=== PATIENT | female | born 1935 | race Caucasian/White ===

== ENCOUNTER 2016-04-14 15:50 | Outpatient (CLI) | payer MEDICARE, OTHER | END 2016-04-14 15:51 | disposition home or self-care (01) | DX: I48.91 Unspecified atrial fibrillation (principal) ==

== ENCOUNTER 2016-05-12 15:04 | Outpatient (CLI) | payer MEDICARE, OTHER | END 2016-05-12 15:05 | disposition home or self-care (01) | LOC: LAB.F 15:04 | PROVIDERS: ATTEND Physician Assistant | DX: I48.91 Unspecified atrial fibrillation (principal) | CPT/HCPCS: 85610 ==

== ENCOUNTER 2016-05-26 14:50 | Outpatient (CLI) | payer MEDICARE, OTHER | END 2016-05-26 14:51 | disposition home or self-care (01) | DX: I48.91 Unspecified atrial fibrillation (principal) ==

== ENCOUNTER 2016-06-03 14:53 | Outpatient (CLI) | payer MEDICARE, OTHER | END 2016-06-03 14:54 | disposition home or self-care (01) | DX: I48.91 Unspecified atrial fibrillation (principal) ==

== ENCOUNTER 2016-06-10 15:25 | Outpatient (CLI) | payer MEDICARE, OTHER | END 2016-06-10 15:26 | disposition home or self-care (01) | DX: I48.0 Paroxysmal atrial fibrillation (principal) ==

== ENCOUNTER 2016-06-24 15:07 | Outpatient (CLI) | payer MEDICARE, OTHER | END 2016-06-24 15:08 | disposition home or self-care (01) | DX: I48.91 Unspecified atrial fibrillation (principal) ==

== ENCOUNTER 2016-07-26 13:34 | Outpatient (CLI) | payer MEDICARE, OTHER | END 2016-07-26 23:59 | disposition home or self-care (01) | DX: I48.91 Unspecified atrial fibrillation (principal) ==

== ENCOUNTER 2016-08-01 14:39 | Outpatient (CLI) | payer MEDICARE, OTHER | END 2016-08-01 14:40 | disposition home or self-care (01) | DX: I48.91 Unspecified atrial fibrillation (principal) ==

== ENCOUNTER 2016-08-08 13:27 | Outpatient (CLI) | payer MEDICARE, OTHER | END 2016-08-08 13:28 | disposition home or self-care (01) | DX: I48.91 Unspecified atrial fibrillation (principal) ==

== ENCOUNTER 2016-08-30 13:38 | Outpatient (CLI) | payer MEDICARE, OTHER | END 2016-08-30 13:39 | disposition home or self-care (01) | LOC: LAB.F 13:38 | PROVIDERS: ATTEND Physician Assistant | DX: I48.91 Unspecified atrial fibrillation (principal) | CPT/HCPCS: 85610 ==

== ENCOUNTER 2016-09-06 13:30 | Outpatient (CLI) | payer MEDICARE, OTHER | END 2016-09-06 13:31 | disposition home or self-care (01) | LOC: LAB.F 13:30 | PROVIDERS: ATTEND Physician Assistant | DX: I48.91 Unspecified atrial fibrillation (principal) | CPT/HCPCS: 85610 ==

== ENCOUNTER 2016-09-19 13:30 | Outpatient (CLI) | payer MEDICARE, OTHER | END 2016-09-19 13:31 | disposition home or self-care (01) | LOC: LAB.F 13:30 | PROVIDERS: ATTEND Physician Assistant | DX: I48.91 Unspecified atrial fibrillation (principal) | CPT/HCPCS: 85610 ==

== ENCOUNTER 2016-10-18 11:27 | Outpatient (CLI) | payer MEDICARE, OTHER ==
[2016-10-18 19:40] LABS: CALCIUM 9.2 mg/dL (8.5-10.3); CREATININE 1.5 mg/dL (0.4-1.0); POTASSIUM 3.8 mmol/L (3.5-5.0)
== END 2016-10-18 23:59 | disposition home or self-care (01) ==
LOC: LAB.F 11:27
PROVIDERS: ATTEND Internal Medicine Cardiovascular Disease
DX: I48.91 Unspecified atrial fibrillation (principal); I48.0 Paroxysmal atrial fibrillation
CPT/HCPCS: 36415; 80048; 85610

== ENCOUNTER 2016-10-18 11:27 | Outpatient (CLI) | payer MEDICARE, OTHER | END 2016-10-18 11:28 | disposition home or self-care (01) | LOC: LAB 11:27 | PROVIDERS: ATTEND Physician Assistant | DX: Z53.9 Procedure and treatment not carried out, unspecified reason (principal) ==

== ENCOUNTER 2016-10-25 13:39 | Outpatient (CLI) | payer MEDICARE, OTHER | END 2016-10-25 13:40 | disposition home or self-care (01) | LOC: LAB.F 13:39 | PROVIDERS: ATTEND Physician Assistant | DX: I48.91 Unspecified atrial fibrillation (principal) | CPT/HCPCS: 85610 ==

== ENCOUNTER 2016-11-01 14:40 | Outpatient (CLI) | payer MEDICARE, OTHER | END 2016-11-01 14:41 | disposition home or self-care (01) | LOC: LAB.F 14:40 | PROVIDERS: ATTEND Physician Assistant | DX: I48.91 Unspecified atrial fibrillation (principal) | CPT/HCPCS: 85610 ==

== ENCOUNTER 2016-11-08 15:29 | Outpatient (CLI) | payer MEDICARE, OTHER | END 2016-11-08 15:30 | disposition home or self-care (01) | LOC: LAB.F 15:29 | PROVIDERS: ATTEND Physician Assistant | DX: I48.91 Unspecified atrial fibrillation (principal) | CPT/HCPCS: 85610 ==

== ENCOUNTER 2016-11-10 10:12 | Outpatient (CLI) | payer MEDICARE, OTHER ==
[2016-11-10 18:15] LABS: CALCIUM 8.7 mg/dL (8.5-10.3); POTASSIUM 3.7 mmol/L (3.5-5.0)
== END 2016-11-10 10:13 | disposition home or self-care (01) ==
LOC: LAB.F 10:12
PROVIDERS: ATTEND Internal Medicine
DX: I10 Essential (primary) hypertension (principal); R06.2 Wheezing; I48.2 Chronic atrial fibrillation; R68.89 Other general symptoms and signs
CPT/HCPCS: 36415; 80048; 83880

== ENCOUNTER 2016-11-10 16:01 | Outpatient (CLI) | payer MEDICARE, OTHER ==
--- NOTE | 2016-11-11 09:27 | XRAY Report ---
TWO-VIEW CHEST: 11/10/2016 CLINICAL INDICATION: Atrial fibrillation, wheezing. COMPARISON: 11/08/2012 FINDINGS: Frontal and lateral views of the chest demonstrate the cardiac silhouette is at the upper limits of normal. There is new right hilar prominence, suspicious for adenopathy. The lungs demonst rate interstitial opacities, which may reflect edema. Trace effusions are present. No pneumothorax. IMPRESSION: LIKELY MILD INTERSTITIAL EDEMA, WITH TRACE EFFUSIONS. RIGHT HILAR FULLNESS, NEW FROM MD EVIOUS, SUSPICIOUS FOR ADENOPATHY. CONSIDER CHEST CT FOR FURTHER EVALUATION. JOB #: [id number] EXT JOB #:[id number]
== END 2016-11-10 16:02 | disposition home or self-care (01) ==
LOC: DI 16:01
PROVIDERS: ATTEND Internal Medicine
DX: I48.2 Chronic atrial fibrillation (principal); R06.2 Wheezing
CPT/HCPCS: 36415; 71020; 80048; 83880

== ENCOUNTER 2016-11-22 13:57 | Outpatient (CLI) | payer MEDICARE, OTHER | END 2016-11-22 13:58 | disposition home or self-care (01) | LOC: LAB.F 13:57 | PROVIDERS: ATTEND Physician Assistant | DX: I48.91 Unspecified atrial fibrillation (principal) | CPT/HCPCS: 85610 ==

== ENCOUNTER 2016-12-20 14:32 | Outpatient (CLI) | payer MEDICARE, OTHER | END 2016-12-20 14:33 | disposition home or self-care (01) | LOC: LAB.F 14:32 | PROVIDERS: ATTEND Physician Assistant | DX: I48.91 Unspecified atrial fibrillation (principal) | CPT/HCPCS: 85610 ==

== ENCOUNTER 2016-12-27 13:27 | Outpatient (CLI) | payer MEDICARE, OTHER ==
[2016-12-27] MEDS ORDERED: IOPAMIDOL-300 100 ML VIAL ONE (14:00)
[2016-12-27] MEDS ORDERED: IOPAMIDOL-300 100 ML VIAL IVP ONE ×2 (14:03)
--- NOTE | 2016-12-27 18:32 | CT Report ---
CT CHEST WITH CONTRAST: 12/27/2016 CLINICAL INDICATION: Possible right hilar adenopathy on chest x-ray. TECHNIQUE: Axial CT images of the chest were obtained with 50 mL of Isovue-300 intravenously, due to patient's renal insufficiency. COMPARISON: Chest x-ray 11/10/2016. FINDINGS: There is a substernal thyroid goiter, predominately right-sided. No hilar or mediastinal lymphadenopathy is present. Right hilar fullness on plain film correlates with overlap of vascular s tructures. The lungs are clear. No effusion or pneumothorax is present. Osseous structures demonst rate degenerative changes. Limited evaluation of upper abdominal structures demonstrates normal adre nal glands. Hepatic cysts are incidentally noted. IMPRESSION: NO EVIDENCE OF HILAR ADENOPATHY. RIGHT HILAR FULLNESS ON CHEST X-RAY CORRELATES WITH GILMAN PERIMPOSITION OF VASCULAR STRUCTURES. THYROID GOITER, WITH RIGHT-SIDED SUBSTERNAL EXTENSION. INCIDE NTAL HEPATIC CYSTS. In accordance with CT protocol optimization, one or more of the following dose reduction techniques w ere utilized for this exam: automated exposure control, adjustment of mA and/or KV based on patient size, or use of iterative reconstructive technique. JOB #: [id number] EXT JOB #:[id number]
== END 2016-12-27 13:28 | disposition home or self-care (01) ==
LOC: DI 13:27
PROVIDERS: ATTEND Internal Medicine
DX: R06.00 Dyspnea, unspecified (principal); E04.9 Nontoxic goiter, unspecified
CPT/HCPCS: 71260; Q9967

== ENCOUNTER 2017-01-06 14:33 | Outpatient (CLI) | payer MEDICARE, OTHER ==
[2017-01-06 18:35] LABS: POTASSIUM 3.4 mmol/L (3.5-5.0)
[2017-01-06 18:53] LABS: THYROID STIMULATING HORMONE 0.38 uIU/mL (0.34-5.60)
[2017-01-06 19:00] LABS: TOTAL T3 0.69 ng/mL (0.87-1.78)
== END 2017-01-06 14:34 | disposition home or self-care (01) ==
LOC: LAB.F 14:33
PROVIDERS: ATTEND Internal Medicine
DX: N17.9 Acute kidney failure, unspecified (principal); E04.9 Nontoxic goiter, unspecified; I48.91 Unspecified atrial fibrillation
CPT/HCPCS: 36415; 80048; 84436; 84443; 84480; 85610

== ENCOUNTER 2017-02-09 15:23 | Outpatient (CLI) | payer MEDICARE, OTHER | END 2017-02-09 15:24 | disposition home or self-care (01) | LOC: LAB.F 15:23 | PROVIDERS: ATTEND Physician Assistant | DX: I48.91 Unspecified atrial fibrillation (principal) | CPT/HCPCS: 85610 ==

== ENCOUNTER 2017-03-13 15:10 | Outpatient (CLI) | payer MEDICARE, OTHER | END 2017-03-13 15:11 | disposition home or self-care (01) | LOC: LAB.F 15:10 | PROVIDERS: ATTEND Internal Medicine | DX: I48.91 Unspecified atrial fibrillation (principal); E04.9 Nontoxic goiter, unspecified | CPT/HCPCS: 36415; 82565; 85610 ==

== ENCOUNTER 2017-03-20 14:37 | Outpatient (CLI) | payer MEDICARE, OTHER | END 2017-03-20 14:38 | disposition home or self-care (01) | LOC: LAB.F 14:37 | PROVIDERS: ATTEND Physician Assistant | DX: I48.91 Unspecified atrial fibrillation (principal) | CPT/HCPCS: 85610 ==

== ENCOUNTER 2017-04-11 13:55 | Outpatient (CLI) | payer MEDICARE, OTHER | END 2017-04-11 13:56 | disposition home or self-care (01) | LOC: LAB.F 13:55 | PROVIDERS: ATTEND Physician Assistant | DX: I48.91 Unspecified atrial fibrillation (principal) | CPT/HCPCS: 85610 ==

== ENCOUNTER 2017-04-25 13:49 | Outpatient (CLI) | payer MEDICARE, OTHER | END 2017-04-25 13:50 | disposition home or self-care (01) | LOC: LAB.F 13:49 | PROVIDERS: ATTEND Physician Assistant | DX: I48.91 Unspecified atrial fibrillation (principal) | CPT/HCPCS: 85610 ==

== ENCOUNTER 2017-05-02 14:25 | Outpatient (CLI) | payer MEDICARE, OTHER | END 2017-05-02 14:26 | disposition home or self-care (01) | LOC: LAB.F 14:25 | PROVIDERS: ATTEND Physician Assistant | DX: I48.91 Unspecified atrial fibrillation (principal) | CPT/HCPCS: 85610 ==

== ENCOUNTER 2017-05-11 13:39 | Outpatient (CLI) | payer MEDICARE, OTHER | END 2017-05-11 13:40 | disposition home or self-care (01) | LOC: LAB.F 13:39 | PROVIDERS: ATTEND Physician Assistant | DX: I48.91 Unspecified atrial fibrillation (principal) | CPT/HCPCS: 85610 ==

== ENCOUNTER 2017-05-29 14:40 | Outpatient (CLI) | payer MEDICARE, OTHER | END 2017-05-29 14:41 | disposition home or self-care (01) | LOC: LAB.F 14:40 | PROVIDERS: ATTEND Physician Assistant | DX: I48.91 Unspecified atrial fibrillation (principal) | CPT/HCPCS: 85610 ==

== ENCOUNTER 2017-07-04 14:09 | Outpatient (CLI) | payer MEDICARE, OTHER | END 2017-07-04 14:10 | disposition home or self-care (01) | LOC: LAB.F 14:09 | PROVIDERS: ATTEND Physician Assistant | DX: I48.91 Unspecified atrial fibrillation (principal) | CPT/HCPCS: 85610 ==

== ENCOUNTER 2017-07-09 20:54 | Outpatient (CLI) | payer MEDICARE, OTHER | END 2017-07-09 20:55 | disposition EMS.NT | LOC: EMS 20:54 | PROVIDERS: ATTEND Surgery | DX: R07.81 Pleurodynia (principal) ==

== ENCOUNTER 2017-07-09 21:55 | Emergency (ER) | payer MEDICARE, OTHER ==
[2017-07-09] MEDS ORDERED: ACETAMINOPHEN 325 MG TABLET PO STA (22:09)
--- NOTE | 2017-07-09 22:46 | XRAY Preliminary Report ---
Exam: XR RIBS W/PA CHEST RT IMPRESSION: No displaced rib fracture or complication from rib fracture seen. [facility] SITE ID: [id number]
--- NOTE | 2017-07-09 22:48 | XRAY Report ---
EXAM: RIGHT RIB RADIOGRAPHY EXAM DATE: 07/09/2017 10:38 PM. CLINICAL HISTORY: Right posterior rib pain and ecchymosis. COMPARISON: CT 12/27/2016, x-ray 11/10/2016. TECHNIQUE: 1 view of the chest and 2 views of the ribs. FINDINGS: Bones: No displaced rib fracture seen. Lungs: No focal opacities. No gross pneumothorax or large effusion. Mediastinum: Heart and mediastinal contours are stable with mild cardiomegaly noted. Other: None. IMPRESSION: No displaced rib fracture or complication from rib fracture seen. [facility] Referring Provider Line: [phone] SITE ID: [id number]
[2017-07-09] MEDS ORDERED: LIDOCAINE PATCH 5% TOP STA (22:49)
[2017-07-09 23:03] VITALS: BP 140/78
--- NOTE | 2017-07-09 23:04 | ED Physician Documentation ---
PD HPI BACK INJURY - Stated complaint Stated Complaint: BACK SPASM - History obtained from History obtained from: Patient, Family - History of Present Illness Location: Right, Lower Type of injury: Fall Where injury occurred: Home Timing - onset: How many days ago (4) Timing - details: Intermittant, Waxing and waning Quality: Pain, Spasm Contributing factors: Anticoagulated Similar symptoms before: Has not had sx before Recently seen: Not recently seen - Additional information Additional information: patient is an 82 year old female with a history of dementia who is presenting to the emergency department for back pain and spasm. According to the family they noticed some bruising on her back about 4 days ago but patient only had minimal pain. Patient did not remember falling or if she hit ti on anything. Family and patient deny any nausea, vomiting, headaches or change in mental status. Tonight when she was watching TV the patient complained of back muscle spasms so the family brought the patient in for evaluation. Review of Systems Unable to obtain: Dementia PD PAST MEDICAL HISTORY - Past Medical History Past Medical History: Yes Cardiovascular: Hypertension, Atrial fibrillation Neuro: Alzhiemer's - Past Surgical History Past Surgical History: Yes General: Appendectomy - Present Medications Home Medications: Ambulatory Orders Medication Instructions Recorded Confirmed DULoxetine [Cymbalta] 30 mg PO DAILY 07/09/17 07/09/17 Donepezil [Aricept] 5 mg PO DAILY 07/09/17 07/09/17 Lidocaine Patch 5% [Lidoderm Patch] 1 each TOP DAILY #10 patch 07/09/17 Lisinopril 20 mg PO 07/09/17 Triamterene/Hydrochlorothiazid 07/09/17 [Triamterene-Hctz 37.5-25 mg Cp] Warfarin Sodium [Jantoven] 4 mg PO 07/09/17 diltiaZEM [Cardizem] 60 mg PO ONCE 07/09/17 07/09/17 - Allergies Allergies/Adverse Reactions: Allergies Allergy/AdvReac Type Severity Reaction Status Date / Time No Known Drug Allergies Allergy Verified 07/09/17 22:15 - Social History Does the pt smoke?: No Smoking Status: Never smoker Does the pt drink ETOH?: No Does the pt have substance abuse?: No - Immunizations Immunizations are current?: No - POLST Patient has POLST: No PD ED PE NORMAL - Vitals Vital signs reviewed: Yes - General General: Alert and oriented X 3 - HEENT HEENT: Atraumatic - Neck Neck: No bony TTP - Cardiac Cardiac: RRR, No murmur - Respiratory Respiratory: No respiratory distress - Abdomen Abdomen: Non distended - Neuro Neuro: Alert and oriented X 3, No motor deficit, Normal speech Eye Opening: Spontaneous Motor: Obeys Commands PD ED PE EXPANDED - Back Back: Soft tissue tenderness (tenderness and ecchymosis of right lateral medial back) - Extremities Extremities: Right arm (posterior ecchymosis) Results - Vitals Vitals: Vital Signs - 24 hr 07/09/17 07/09/17 21:58 23:03 Temperature 36.0 C L Heart Rate 83 96 Respiratory 18 18 Rate Blood Pressure 146/89 H 140/78 H O2 Saturation 98 97 Oxygen O2 Source Room air - Rads (name of study) rib series Radiology: Final report received (no acute fracture or dislocation) PD MEDICAL DECISION MAKING - ED course Complexity details: reviewed old records, reviewed results, re-evaluated patient , considered differential, d/w patient, d/w family ED course: Patient was seen and examined at bedside. Patient was sent for imaging. when patient returned the results were reviewed. there was no acute fracture or dislocation. patient was treated with tylenol and a lidoderm patch. patient required no further inpatient work up and was stable for discharge with outpatient followup. Departure - Departure Disposition: 01 Home, Self Care Clinical Impression: Back pain Condition: Good Instructions: ED Contusion Back Follow-Up: Linda Guerra PA [Primary Care Provider] - As Needed Prescriptions: Lidocaine Patch 5% [Lidoderm Patch] 1 each TOP DAILY #10 patch Comments: Your diagnostics today were within normal limits. There is no acute fracture or dislocation. You can alternate between 600mg of ibuprofen and 1000mg of tylenol as needed every three hours. You can also apply the lidoderm patch once a day. Ice and heat may also aid in symptom relief. You should follow up with your doctor if your symptoms persist. You may return to the emergency department at any time for new, worsening or uncontrollable symptoms. Discharge Date/Time: 07/09/17 23:09
== END 2017-07-09 23:09 | disposition home or self-care (01) ==
LOC: ED 21:55
DX: M54.9 Dorsalgia, unspecified (principal); S30.0XXA Contusion of lower back and pelvis, initial encounter; W18.30XA Fall on same level, unspecified, initial encounter; I48.91 Unspecified atrial fibrillation; G30.9 Alzheimer's disease, unspecified; F02.80 Dementia in other diseases classified elsewhere, unspecified severity, without behavioral disturbance, psychotic disturbance, mood disturbance, and anxiety; I10 Essential (primary) hypertension; Z79.01 Long term (current) use of anticoagulants
CPT/HCPCS: 71101; 99283; A9270

== ENCOUNTER 2017-08-07 13:37 | Outpatient (CLI) | payer MEDICARE, OTHER ==
[2017-08-07 18:33] LABS: THYROID STIMULATING HORMONE 0.23 uIU/mL (0.34-5.60)
[2017-08-07 18:37] LABS: T4 (THYROXINE) 9.09 ug/dL (6.09-12.23)
[2017-08-07 18:40] LABS: TOTAL T3 0.9 ng/mL (0.87-1.78)
== END 2017-08-07 13:38 | disposition home or self-care (01) ==
LOC: LAB.F 13:37
PROVIDERS: ATTEND Physician Assistant
DX: I48.91 Unspecified atrial fibrillation (principal); E04.9 Nontoxic goiter, unspecified
CPT/HCPCS: 84436; 84443; 84480; 85610

== ENCOUNTER 2017-09-12 14:11 | Outpatient (CLI) | payer MEDICARE, OTHER | END 2017-09-12 14:12 | disposition home or self-care (01) | LOC: LAB.F 14:11 | PROVIDERS: ATTEND Physician Assistant | DX: I48.91 Unspecified atrial fibrillation (principal) | CPT/HCPCS: 85610 ==

== ENCOUNTER 2017-10-16 13:45 | Outpatient (CLI) | payer MEDICARE, OTHER | END 2017-10-16 13:46 | disposition home or self-care (01) | LOC: LAB.F 13:45 | PROVIDERS: ATTEND Physician Assistant | DX: I48.91 Unspecified atrial fibrillation (principal) | CPT/HCPCS: 85610 ==

== ENCOUNTER 2017-11-16 10:30 | Outpatient (CLI) | payer MEDICARE, OTHER | END 2017-11-16 10:31 | disposition home or self-care (01) | LOC: LAB.F 10:30 | PROVIDERS: ATTEND Physician Assistant | DX: I48.91 Unspecified atrial fibrillation (principal) | CPT/HCPCS: 85610 ==

== ENCOUNTER 2017-12-27 13:13 | Outpatient (CLI) | payer MEDICARE, OTHER ==
[2017-12-27 17:43] LABS: ALBUMIN 3.7 g/dL (3.2-5.5); BILIRUBIN,TOTAL 0.9 mg/dL (0.2-1.0); CREATININE 0.7 mg/dL (0.4-1.0); TOTAL PROTEIN 7.4 g/dL (6.7-8.2)
[2017-12-27 17:53] LABS: T4 (THYROXINE) 8.95 ug/dL (6.09-12.23)
[2017-12-27 17:57] LABS: THYROID STIMULATING HORMONE 0.36 uIU/mL (0.34-5.60)
[2017-12-27 18:02] LABS: TOTAL T3 0.89 ng/mL (0.87-1.78)
== END 2017-12-27 13:14 | disposition home or self-care (01) ==
LOC: LAB.F 13:13
PROVIDERS: ATTEND Physician Assistant
DX: N18.9 Chronic kidney disease, unspecified (principal); E04.9 Nontoxic goiter, unspecified; I48.91 Unspecified atrial fibrillation
CPT/HCPCS: 36415; 80053; 84436; 84443; 84480; 85610

== ENCOUNTER 2018-01-22 13:52 | Outpatient (CLI) | payer MEDICARE, OTHER | END 2018-01-22 13:53 | disposition home or self-care (01) | LOC: LAB.F 13:52 | PROVIDERS: ATTEND Physician Assistant | DX: I48.91 Unspecified atrial fibrillation (principal) | CPT/HCPCS: 85610 ==

== ENCOUNTER 2018-02-26 14:19 | Outpatient (CLI) | payer MEDICARE, OTHER | END 2018-02-26 14:20 | disposition home or self-care (01) | LOC: LAB.F 14:19 | PROVIDERS: ATTEND Physician Assistant | DX: I48.91 Unspecified atrial fibrillation (principal) | CPT/HCPCS: 85610 ==

== ENCOUNTER 2018-03-12 14:10 | Outpatient (CLI) | payer MEDICARE, OTHER | END 2018-03-12 14:11 | disposition home or self-care (01) | LOC: LAB.F 14:10 | PROVIDERS: ATTEND Physician Assistant | DX: I48.91 Unspecified atrial fibrillation (principal) | CPT/HCPCS: 85610 ==

== ENCOUNTER 2018-04-18 13:41 | Outpatient (CLI) | payer MEDICARE, OTHER | END 2018-04-18 13:42 | disposition home or self-care (01) | LOC: LAB.F 13:41 | PROVIDERS: ATTEND Physician Assistant | DX: I48.91 Unspecified atrial fibrillation (principal) | CPT/HCPCS: 85610 ==

== ENCOUNTER 2018-05-23 14:14 | Outpatient (CLI) | payer MEDICARE, OTHER | END 2018-05-23 14:15 | disposition home or self-care (01) | LOC: LAB.F 14:14 | PROVIDERS: ATTEND Physician Assistant | DX: I48.91 Unspecified atrial fibrillation (principal) | CPT/HCPCS: 85610 ==

== ENCOUNTER 2018-05-30 08:00 | Outpatient (CLI) | payer MEDICARE, OTHER | END 2018-05-30 23:59 | disposition home or self-care (01) | LOC: LAB.F 08:00 | PROVIDERS: ATTEND Physician Assistant | DX: I48.91 Unspecified atrial fibrillation (principal) | CPT/HCPCS: 85610 ==

== ENCOUNTER 2018-06-11 14:21 | Outpatient (CLI) | payer MEDICARE, OTHER | END 2018-06-11 14:22 | disposition home or self-care (01) | LOC: LAB.F 14:21 | PROVIDERS: ATTEND Physician Assistant | DX: I48.91 Unspecified atrial fibrillation (principal) | CPT/HCPCS: 85610 ==

== ENCOUNTER 2018-07-20 13:14 | Outpatient (CLI) | payer MEDICARE, OTHER | END 2018-07-20 13:15 | disposition home or self-care (01) | LOC: LAB.F 13:14 | PROVIDERS: ATTEND Physician Assistant | DX: I48.91 Unspecified atrial fibrillation (principal) | CPT/HCPCS: 85610 ==

== ENCOUNTER 2018-08-21 13:03 | Outpatient (CLI) | payer MEDICARE, OTHER | END 2018-08-21 13:04 | disposition home or self-care (01) | LOC: LAB.F 13:03 | PROVIDERS: ATTEND Physician Assistant | DX: I48.91 Unspecified atrial fibrillation (principal) | CPT/HCPCS: 85610 ==

== ENCOUNTER 2018-09-26 13:18 | Outpatient (CLI) | payer MEDICARE, OTHER | END 2018-09-26 13:19 | disposition home or self-care (01) | LOC: LAB.F 13:18 | PROVIDERS: ATTEND Physician Assistant | DX: I48.91 Unspecified atrial fibrillation (principal) | CPT/HCPCS: 85610 ==

== ENCOUNTER 2018-10-26 14:48 | Outpatient (CLI) | payer MEDICARE, OTHER ==
--- NOTE | 2018-10-29 10:02 | XRAY Report ---
Reason: LOW BACK PAIN Procedure Date: 10/26/2018 Accession Number: [id number] / [id number] Procedure: XRS - Lumbar Spine 2 View CPT Code: FULL RESULT: EXAM: LUMBOSACRAL SPINE RADIOGRAPHY EXAM DATE: 10/26/2018 03:21 PM. CLINICAL HISTORY: Low back pain. COMPARISONS: LUMBAR SPINE W/O 11/29/2013 1:24 PM. TECHNIQUE: 3 views. FINDINGS: Alignment: Compared to the CT in 2013, there is possibly mild increase in anterolisthesis of L4 on L5, evaluation limited by osteopenia and differences in technique. Bones: Five olp-abh-ncydodn lumbar vertebral bodies are present. The bones are qualitatively osteopenic; this limits evaluation for underlying fractures or masses. No definite fracture is seen though the vertebral body outline of L5 is essentially occult. Disks: There is multilevel loss of disk space height. Facets: At L4 and L5 there are at least moderate degenerative changes, limited by osteopenia. Sacroiliac Joints: Unremarkable. Soft Tissues: Aortic calcifications. IMPRESSION: Marked osteopenia and degenerative changes which may have progressed compared to 2013. The L5 vertebral body is not well seen with frontal view supportive of possible fracture or significant degenerative changes at that level. Recommendation: If clinically warranted, imaging is supportive of the need for additional evaluation by cross-sectional imaging, MRI is likely more helpful than CT. [facility]
== END 2018-10-26 14:49 | disposition home or self-care (01) ==
LOC: DI.S 14:48
PROVIDERS: ATTEND Internal Medicine
DX: M51.36 Other intervertebral disc degeneration, lumbar region (principal); M47.816 Spondylosis without myelopathy or radiculopathy, lumbar region; M85.88 Other specified disorders of bone density and structure, other site; I48.91 Unspecified atrial fibrillation; M43.16 Spondylolisthesis, lumbar region
CPT/HCPCS: 72100; 85610

== ENCOUNTER 2018-11-12 14:57 | Outpatient (CLI) | payer MEDICARE, OTHER ==
--- NOTE | 2018-11-12 17:27 | CT Report ---
Reason: PLAIN XRAY LUMBAR SPINE ABNORMAL Procedure Date: 11/12/2018 Accession Number: [id number] / [id number] Procedure: CT - LUMBAR SPINE WO CPT Code: FULL RESULT: EXAM: CT LUMBAR SPINE WITHOUT CONTRAST EXAM DATE: 11/12/2018 03:29 PM. CLINICAL HISTORY: Plain x-ray lumbar spine abnormal. COMPARISONS: LUMBAR SPINE 2 VIEW 10/26/2018 3:18 PM LUMBAR SPINE W/O 11/29/2013 1:24 PM. TECHNIQUE: Thin-section axial images were acquired of the lumbar spine from T12 to S1 without contrast. Post-processing: Coronal and sagittal reformats. Other: None. In accordance with CT protocol optimization, one or more of the following dose reduction techniques were utilized for this exam: automated exposure control, adjustment of mA and/or KV based on patient size, or use of iterative reconstructive technique. FINDINGS: Alignment: No scoliosis or spondylolisthesis. Bones: Sacralization of L5. No fractures or bone lesions. Disk Levels/Facets: T12-L1: Negative for spinal canal stenosis or foraminal stenosis. L1-L2: Moderate disk degeneration. Diffuse disk bulge osteophyte complex. Mild spinal canal stenosis. Moderate bilateral foraminal stenosis. Negative for interval change. Retrolisthesis 3 mm L1 on L2. L2-L3: Mild facet joint arthrosis. Moderate spinal canal stenosis. Mild bilateral lateral recess stenosis. Ossification ligamentum flavum. Diffuse disk bulge osteophyte complex. Moderate bilateral foraminal stenosis. Moderate disk degeneration. L3-L4: Retrolisthesis 3 mm L3 on L4. Moderately severe spinal canal stenosis from facet hypertrophy, ligamentum flavum thickening and diffuse disk bulge osteophyte complex. Mild bilateral foraminal stenosis. L4-L5: Severe disk degeneration. Anterolisthesis 6 mm L4 on L5 increased as compared to 11/29/2013. Moderately severe spinal canal stenosis severe facet hypertrophic arthropathy. Moderate bilateral lateral recess stenosis. Severe right foraminal stenosis from foraminal disk herniation which has developed since the CT lumbar spine 11/29/2013. Moderate left foraminal stenosis from disk degeneration and foraminal disk protrusion osteophyte complex. Negative for interval change. Severe disk degeneration. Laminectomy defect. L5-S1: Hypoplastic disk interspace. Interbody fusion. Facet joint fusion. Negative for spinal canal stenosis or foraminal stenosis. Musculature: Low lumbar and sacrum posterior paraspinal muscle atrophy with fatty replacement. Moderate bilateral atrophy psoas muscles. Other: The visualized retroperitoneum is unremarkable. IMPRESSION: 1. Severe disk degeneration and severe facet hypertrophic arthropathy L4-L5 with 6 mm anterolisthesis L4 on L5 increased from 4 mm anterolisthesis L4 on L5 as compared to the CT lumbar spine 11/29/2013. 2. Moderately severe spinal canal stenosis and moderate bilateral recess stenosis L4-L5 with interval spinal canal narrowing as compared to the CT lumbar spine 11/29/2013. 3. Severe right L4-L5 foraminal stenosis from lateral disk herniation with exiting right L4 nerve root impingement which has developed since the CT lumbar spine 11/29/2013. 4. Moderate left L4-L5 foraminal stenosis without interval changes compared to the CT lumbar spine 11/29/2013. 5. Moderately severe spinal canal stenosis L3-L4 without interval change. 6. Moderate spinal canal stenosis, mild bilateral lateral recess stenosis and moderate bilateral foraminal stenosis L2-L3 without interval change. [facility]
== END 2018-11-12 14:58 | disposition home or self-care (01) ==
LOC: DI 14:57
PROVIDERS: ATTEND Internal Medicine
DX: M51.36 Other intervertebral disc degeneration, lumbar region (principal); M48.061 Spinal stenosis, lumbar region without neurogenic claudication; M47.816 Spondylosis without myelopathy or radiculopathy, lumbar region; M43.16 Spondylolisthesis, lumbar region; M51.26 Other intervertebral disc displacement, lumbar region; M43.27 Fusion of spine, lumbosacral region
CPT/HCPCS: 72131

== ENCOUNTER 2018-11-28 13:59 | Outpatient (CLI) | payer MEDICARE, OTHER | END 2018-11-28 14:00 | disposition home or self-care (01) | LOC: LAB.S 13:59 | PROVIDERS: ATTEND Physician Assistant | DX: I48.91 Unspecified atrial fibrillation (principal) | CPT/HCPCS: 85610 ==

== ENCOUNTER 2018-12-10 14:54 | Outpatient (CLI) | payer MEDICARE, OTHER | END 2018-12-10 14:55 | disposition home or self-care (01) | LOC: LAB.S 14:54 | PROVIDERS: ATTEND Physician Assistant | DX: I48.91 Unspecified atrial fibrillation (principal) | CPT/HCPCS: 85610 ==

== ENCOUNTER 2018-12-25 13:21 | Outpatient (CLI) | payer MEDICARE, OTHER | END 2018-12-25 13:22 | disposition home or self-care (01) | LOC: LAB.S 13:21 | PROVIDERS: ATTEND Physician Assistant | DX: I48.91 Unspecified atrial fibrillation (principal) | CPT/HCPCS: 85610 ==

== ENCOUNTER 2019-01-24 15:01 | Outpatient (CLI) | payer MEDICARE, OTHER | END 2019-01-24 15:02 | disposition home or self-care (01) | LOC: LAB.S 15:01 | PROVIDERS: ATTEND Physician Assistant | DX: I48.91 Unspecified atrial fibrillation (principal) | CPT/HCPCS: 85610 ==

== ENCOUNTER 2019-02-25 13:50 | Outpatient (CLI) | payer MEDICARE, OTHER | END 2019-02-25 13:51 | disposition home or self-care (01) | LOC: LAB.S 13:50 | PROVIDERS: ATTEND Physician Assistant | DX: I48.91 Unspecified atrial fibrillation (principal) | CPT/HCPCS: 85610 ==

== ENCOUNTER 2019-04-08 14:27 | Outpatient (CLI) | payer MEDICARE, OTHER | END 2019-04-08 14:28 | disposition home or self-care (01) | LOC: LAB.S 14:27 | PROVIDERS: ATTEND Physician Assistant | DX: I48.91 Unspecified atrial fibrillation (principal) | CPT/HCPCS: 85610 ==

== ENCOUNTER 2019-05-10 15:14 | Outpatient (CLI) | payer MEDICARE, OTHER | END 2019-05-10 15:15 | disposition home or self-care (01) | LOC: LAB.S 15:14 | PROVIDERS: ATTEND Physician Assistant | DX: I48.91 Unspecified atrial fibrillation (principal) | CPT/HCPCS: 85610 ==

== ENCOUNTER 2019-12-04 15:44 | Outpatient (CLI) | payer MEDICARE, OTHER | END 2019-12-04 15:45 | disposition home or self-care (01) | LOC: LAB.S 15:44 | PROVIDERS: ATTEND Physician Assistant | DX: I48.91 Unspecified atrial fibrillation (principal) | CPT/HCPCS: 85610 ==

== ENCOUNTER 2019-12-21 14:56 | Outpatient (CLI) | payer MEDICARE, OTHER | END 2019-12-21 14:57 | disposition home or self-care (01) | LOC: LAB.S 14:56 | PROVIDERS: ATTEND Physician Assistant | DX: Z79.01 Long term (current) use of anticoagulants (principal) | CPT/HCPCS: 85610 ==

== ENCOUNTER 2020-02-05 15:07 | Outpatient (CLI) | payer MEDICARE, OTHER | END 2020-02-05 15:08 | disposition home or self-care (01) | LOC: LAB.S 15:07 | PROVIDERS: ATTEND Physician Assistant | DX: Z79.01 Long term (current) use of anticoagulants (principal) | CPT/HCPCS: 85610 ==

== ENCOUNTER 2020-03-07 15:25 | Outpatient (CLI) | payer MEDICARE, OTHER | END 2020-03-07 15:26 | disposition home or self-care (01) | LOC: LAB.S 15:25 | PROVIDERS: ATTEND Physician Assistant | DX: Z79.01 Long term (current) use of anticoagulants (principal) | CPT/HCPCS: 85610 ==

== ENCOUNTER 2020-04-08 12:33 | Outpatient (CLI) | payer MEDICARE, OTHER | END 2020-04-08 12:34 | disposition home or self-care (01) | LOC: LAB.S 12:33 | PROVIDERS: ATTEND Physician Assistant | DX: Z79.01 Long term (current) use of anticoagulants (principal) | CPT/HCPCS: 85610 ==

== ENCOUNTER 2020-05-09 15:33 | Outpatient (CLI) | payer MEDICARE, OTHER | END 2020-05-09 15:34 | disposition home or self-care (01) | LOC: LAB.S 15:33 | PROVIDERS: ATTEND Physician Assistant | DX: Z79.01 Long term (current) use of anticoagulants (principal) | CPT/HCPCS: 85610 ==

== ENCOUNTER 2020-06-05 15:11 | Outpatient (CLI) | payer MEDICARE, OTHER | END 2020-06-05 15:12 | disposition home or self-care (01) | LOC: LAB.S 15:11 | PROVIDERS: ATTEND Physician Assistant | DX: Z79.01 Long term (current) use of anticoagulants (principal) | CPT/HCPCS: 85610 ==

== ENCOUNTER 2020-06-17 15:45 | Outpatient (CLI) | payer MEDICARE, OTHER | END 2020-06-17 15:46 | disposition home or self-care (01) | LOC: LAB.S 15:45 | PROVIDERS: ATTEND Physician Assistant | DX: Z79.01 Long term (current) use of anticoagulants (principal) | CPT/HCPCS: 85610 ==

== ENCOUNTER 2020-07-22 16:26 | Outpatient (CLI) | payer MEDICARE, OTHER | END 2020-07-22 16:27 | disposition home or self-care (01) | LOC: LAB.S 16:26 | PROVIDERS: ATTEND Physician Assistant | DX: Z79.01 Long term (current) use of anticoagulants (principal) | CPT/HCPCS: 85610 ==

== ENCOUNTER 2020-07-30 16:17 | Outpatient (CLI) | payer MEDICARE, OTHER | END 2020-07-30 16:18 | disposition home or self-care (01) | LOC: LAB.S 16:17 | PROVIDERS: ATTEND Physician Assistant | DX: Z79.01 Long term (current) use of anticoagulants (principal) | CPT/HCPCS: 36416; 85610 ==

== ENCOUNTER 2020-09-02 16:16 | Outpatient (CLI) | payer MEDICARE, OTHER | END 2020-09-02 16:17 | disposition home or self-care (01) | LOC: LAB.S 16:16 | PROVIDERS: ATTEND Physician Assistant | DX: Z79.01 Long term (current) use of anticoagulants (principal) | CPT/HCPCS: 36416; 85610 ==

== ENCOUNTER 2020-10-03 15:16 | Outpatient (CLI) | payer MEDICARE, OTHER | END 2020-10-03 15:17 | disposition home or self-care (01) | LOC: LAB.S 15:16 | PROVIDERS: ATTEND Physician Assistant | DX: Z79.01 Long term (current) use of anticoagulants (principal) | CPT/HCPCS: 36416; 85610 ==

== ENCOUNTER 2020-11-06 16:34 | Outpatient (CLI) | payer MEDICARE, OTHER | END 2020-11-06 16:35 | disposition home or self-care (01) | LOC: LAB.S 16:34 | PROVIDERS: ATTEND Physician Assistant | DX: Z79.01 Long term (current) use of anticoagulants (principal) | CPT/HCPCS: 36416; 85610 ==

== ENCOUNTER 2020-12-12 15:40 | Outpatient (CLI) | payer MEDICARE, OTHER | END 2020-12-12 15:41 | disposition home or self-care (01) | LOC: LAB.S 15:40 | PROVIDERS: ATTEND Physician Assistant | DX: Z79.01 Long term (current) use of anticoagulants (principal) | CPT/HCPCS: 36416; 85610 ==

== ENCOUNTER 2021-01-06 16:37 | Outpatient (CLI) | payer MEDICARE, OTHER | END 2021-01-06 16:38 | disposition home or self-care (01) | LOC: LAB.S 16:37 | PROVIDERS: ATTEND Physician Assistant | DX: Z53.9 Procedure and treatment not carried out, unspecified reason (principal) | CPT/HCPCS: 36416; 85610 ==

== ENCOUNTER 2021-02-19 15:51 | Outpatient (CLI) | payer MEDICARE, OTHER | END 2021-02-19 15:52 | disposition home or self-care (01) | LOC: LAB.S 15:51 | PROVIDERS: ATTEND Family Medicine | DX: Z79.01 Long term (current) use of anticoagulants (principal) | CPT/HCPCS: 36416; 85610 ==

== ENCOUNTER 2021-03-05 17:03 | Outpatient (CLI) | payer MEDICARE, OTHER | END 2021-03-05 17:04 | disposition home or self-care (01) | LOC: LAB.S 17:03 | PROVIDERS: ATTEND Family Medicine | DX: Z79.01 Long term (current) use of anticoagulants (principal) | CPT/HCPCS: 36416; 85610 ==

== ENCOUNTER 2021-04-14 16:12 | Outpatient (CLI) | payer MEDICARE | END 2021-04-14 16:13 | disposition home or self-care (01) | LOC: LAB.S 16:12 | PROVIDERS: ATTEND Family Medicine | DX: Z79.01 Long term (current) use of anticoagulants (principal) | CPT/HCPCS: 36416; 85610 ==